=== PATIENT | male | born 1980 | race African-American/Black ===

== ENCOUNTER → 2016-10-22 | Emergency (ER) | payer SELFPAY ==
[~2016-10-22] VITALS: Ht 188 cm; Wt 126.3 kg
[~2016-10-22] MED LIST: ACET650S13 PR; IBP800T PO; KETOROLAC 60 MG/2 ML (TORADOL) VIAL IM ONE; TRM50T PO
[2016-10-22 15:10] VITALS: BP 148/93
== END | disposition home or self-care (01) ==
LOC: ED 13:33
DX: J02.9 Acute pharyngitis, unspecified (principal)
CPT/HCPCS: 87070; 87880; 96372; 99283; J1885; 87651